=== PATIENT | female | born 1945 | race Caucasian/White ===

== ENCOUNTER → 2017-03-13 | Outpatient (CLI) | payer OTHER | LOC: FLAB 17:25 | PROVIDERS: ATTEND Surgery | DX: C25.9 Malignant neoplasm of pancreas, unspecified (principal); C78.01 Secondary malignant neoplasm of right lung ==

== ENCOUNTER → 2017-09-28 | Outpatient (CLI) | payer OTHER | LOC: FIMAGING 13:55 | PROVIDERS: ATTEND Internal Medicine Hematology & Oncology | DX: R60.9 Edema, unspecified (principal); C25.0 Malignant neoplasm of head of pancreas | CPT/HCPCS: 86301-90 ==

== ENCOUNTER 2017-09-29 11:03 | Outpatient (CLI) | payer OTHER ==
[2017-09-29] MEDS ORDERED: ACETAMINOPHEN 325 MG TAB PO ONE (11:30)
== END 2017-09-29 15:17 | disposition home or self-care (01) ==
LOC: FOBOP 11:03
PROVIDERS: ATTEND Internal Medicine Hematology & Oncology
PROC: 30233N1 Transfusion of Nonautologous Red Blood Cells into Peripheral Vein, Percutaneous Approach (ICD-10-PCS; principal; 2017-09-29)
DX: C25.9 Malignant neoplasm of pancreas, unspecified (principal)
CPT/HCPCS: 36430; J1642; P9016

== ENCOUNTER → 2017-12-11 | Outpatient (CLI) | payer OTHER | LOC: FIMAGING 16:28 | PROVIDERS: ATTEND Internal Medicine Hematology & Oncology | DX: C25.0 Malignant neoplasm of head of pancreas (principal) | CPT/HCPCS: 86301-90 ==

== ENCOUNTER → 2017-12-18 | Outpatient (CLI) | payer OTHER | LOC: FIMAGING 14:30 | PROVIDERS: ATTEND Internal Medicine Hematology & Oncology | DX: K90.2 Blind loop syndrome, not elsewhere classified (principal); C25.0 Malignant neoplasm of head of pancreas ==